=== PATIENT | male | born 1960 | race Caucasian/White ===

== ENCOUNTER 2020-09-15 12:15 | Emergency (ER) | payer BC, OTHER ==
[~2020-09-15] VITALS: Ht 172.7 cm; Wt 113.4 kg
[2020-09-15] MEDS ORDERED: SODIUM CHLORIDE 0.9% 1000ML 1,000 ML IV STA (12:20)
[2020-09-15] MEDS ORDERED: CEFTRIAXONE 1 GM in SODIUM CHLORIDE 0.9% 50ML 50 ML IV ONE (12:30)
[2020-09-15] MEDS ORDERED: ACETAMINOPHEN 325 MG TAB PO ONE (12:30)
[2020-09-15] MEDS ORDERED: SODIUM CHLORIDE 0.9% 1000ML 1,000 ML ONE (12:35)
[2020-09-15] MEDS ORDERED: ACETAMINOPHEN 325 MG TAB ONE (12:35)
[2020-09-15 12:39] LABS: BASOPHILS # (AUTO) 0.1 (0.0-0.1); BASOPHILS % 0.3 % (0.0-1.0); EOSINOPHILS % 0.2 % (0.0-6.0); HEMATOCRIT 51.5 % (38.2-49.6); HEMOGLOBIN 17.1 g/dL (14.0-18.0); LYMPHOCYTES # (AUTO) 1.4 (1.0-3.2); LYMPHOCYTES % 6.7 % (18.0-39.1); MEAN CORPUSCULAR HEMOGLOBIN 29.5 pg (28-32); MEAN CORPUSCULAR HGB CONC 33.2 g/dL (31-35); MEAN CORPUSCULAR VOLUME 88.8 fL (81-99); MONOCYTES # (AUTO) 0.7 (0.2-0.8); MONOCYTES % 3.4 % (4.4-11.3); NEUTROPHILS % 86.2 % (38.7-80.0); PLATELET COUNT 263 x10e3/uL (140-360)
[2020-09-15 12:47] LABS: INR 1.03; PROTHROMBIN TIME 14.1 seconds (11.9-14.5)
[2020-09-15 12:55] LABS: ALBUMIN 3.1 g/dL (3.5-5.0); ALBUMIN/GLOBULIN RATIO 0.7 (0.8-2.0); ANION GAP 19.2 mmol/L (8-16); CALCIUM 8.9 mg/dL (8.4-10.2); CREATININE, SERUM 1.23 mg/dL (0.72-1.25); MAGNESIUM 1.9 MG/DL (1.3-2.1); POTASSIUM 4.2 mmol/L (3.5-5.1)
[2020-09-15] MEDS ORDERED: DEXAMETHASONE SOD PHOS 10 MG/1 ML VIAL IV SCH (13:00)
[2020-09-15 13:02] LABS: CREATINE KINASE MB 1.8 ng/mL (0-5.0)
[2020-09-15] MEDS ORDERED: IBUPROFEN 800MG/ 200ML 200 ML IV ONE (14:00)
[2020-09-15 15:02] VITALS: BP 137/77
[2020-09-15 15:06] LABS: ABG HCO3 22 mmol/L (22-26); ABG PCO2 31 mmHg (35-45); ABG PH 7.47 (7.35-7.45); ABG PO2 92 mmHg (80-105); ABG TCO2 23
== END 2020-09-15 16:17 | disposition short-term general hospital (02) ==
LOC: ER 12:37
DX: U07.1 COVID-19 (principal); R09.02 Hypoxemia; R06.82 Tachypnea, not elsewhere classified
CPT/HCPCS: 36415; 36600; 71045; 80053; 82550; 82553; 82805; 83735; 83880; 84484; 85025; 85610; 85730; 87040; 93005; 99284; J7030; U0002